=== PATIENT | female | born 1990 | race African-American/Black ===

== ENCOUNTER 2023-01-27 08:30 | Emergency (ER) | payer MEDICAID, OTHER ==
[~2023-01-27] VITALS: Ht 170 cm; Wt 111.0 kg
[2023-01-27] MEDS ORDERED: LIDOCAINE 1% INJ 10 ML VIAL INJ ONE (08:45)
[2023-01-27] MEDS ORDERED: LIDOCAINE/EPI 1%-1:100,000 (XYLOCAINE) 20ML ONE (08:45)
[2023-01-27] MEDS ORDERED: LIDOCAINE/EPI 2% 1:100,00 (XYLOCAINE) 20 ML VIAL INJ ONE (09:00)
[2023-01-27] MEDS ORDERED: SULF1TAB38 PO (09:10)
[2023-01-27] MEDS ORDERED: TRM50T PO (09:10)
[2023-01-27] MEDS ORDERED: MELO15TA39 PO (09:10)
[2023-01-27] MEDS ORDERED: METR-145 PO (09:10)
--- NOTE | 2023-01-27 09:10 | ED Integumentary General ---
General Chief Complaint: Skin/Wound Problems Stated Complaint: POSSIBLE BOIL Nursing Triage Note: PT STATES HAVING A BOIL ON HER BUTTOCKS Source: patient History of Present Illness Date Seen by Provider: Jan 27, 2023 Time Seen by Provider: 08:39 Initial Comments PT ARRIVES VIA POV C/O "BOIL ON MY CRACK" FOR THE LAST COUPLE OF DAYS, WORSE TODAY NO DRAINAGE NO FEVER HAS HISTORY OF SAME--HAD IT TWICE LAST YEAR. HAD I&D X1. HAS NOT FOLLOWED UP WITH ANYONE SINCE THEN DENIES ANY MEDICAL PROBLEMS PT HAS BEEN HERE FOR THE LAST MONTH, FROM [place], [place] VAGUE ABOUT WHETHER SHE HAS MOVED HERE OR JUST VISITING. Allergies and Home Medications Allergies Coded Allergies: No Known Drug Allergies (Unverified , 01/27/23) Patient Home Medication List Home Medication List Reviewed: Yes Meloxicam (Meloxicam) 15 Mg Tablet, 15 MG PO DAILY Prescribed by: IRENE FREY on 01/27/23 0910 Metronidazole (Metronidazole) 500 Mg Tablet, 500 MG PO QID Prescribed by: IRENE FREY on 01/27/23 0910 Sulfamethoxazole/Trimethoprim (Bactrim Ds Tablet) 1 Each Tablet, 1 EACH PO BID Prescribed by: IRENE FREY on 01/27/23 0910 Tramadol HCl (Tramadol HCl) 50 Mg Tablet, 50 MG PO Q6H PRN for PAIN Prescribed by: IRENE FREY on 01/27/23 0910 Review of Systems Review of Systems Constitutional: no symptoms reported Genitourinary: no symptoms reported Musculoskeletal: see HPI Skin: see HPI Psychiatric/Neurological: No Symptoms Reported Past Biglzvd-Apicod-Wzgrxh Hx Patient Social History Tobacco Use?: No Substance use?: Yes Substance type: Marijuana Substance frequency: Daily Alcohol Use?: Yes Alcohol Frequency: Rarely Immunizations Up To Date Second COVID19 Vaccination Fred: YES Past Medical History Surgery/Hospitalization HX: DENIES Surgeries: Yes (I&D OF PILONIDAL ABSCESS) Respiratory: No Cardiac: No Neurological: No Genitourinary: No Gastrointestinal: No Musculoskeletal: No Endocrine: No HEENT: No Cancer: No Psychosocial: No Integumentary: Yes (PILONIDAL CYST/ABSCESS) Blood Disorders: No Physical Exam Vital Signs Vital Signs - First Documented 01/27/23 08:39 Temp 36.0 Pulse 86 Resp 20 B/P (MAP) 144/84 (104) Pulse Ox 100 O2 Delivery Room Air Capillary Refill : Less Than 3 Seconds General Appearance: WD/WN, no apparent distress Neurologic/Psychiatric: no motor/sensory deficits, alert, normal mood/affect Skin: normal color (PT IS BLACK), warm/dry, other (PILONIDAL ABSCESS PRESENT, FLUCTUANT, TENDER. NO ERYTHEMA TO OVERLYING SKIN, NO POINTING. NO DRAINAGE. ) Procedures/Interventions I&D : Site: PILONIDAL AREA Blade Size: 11 I & D Procedure: sterile drapes applied, gauze wick placed, Wound Packing Packing/Drain: Idoform 1/ Progress AREA CLEANSED WITH BETASEPT INJECTED WITH 1% LIDOCAINE + EPI STERILE DRAPES PLACED INCISED WITH #11 BLADE COPIOUS AMOUNTS OF FOUL-SMELLING PURULENT MATERIAL DRAINED. CULTURE OBTAINED PROBED TO BREAK UP LOCULATIONS IRRIGATED WITH STERILE SALINE PACKED WITH 1/4" IODOFORM GAUZE DRESSED WITH NON-ADHERENT DRESSING AND ABD DRESSING. PT TOLERATED VERY WELL Progress/Results/Core Measures Results/Orders My Orders Orders - IRENE FREY DO Lidocaine 1% Inj 10 Ml (Xylocaine 1% Inj (01/27/23 08:45) Lidocaine/Epi 1% 1:100,000 (Xylocaine /E (01/27/23 08:45) Lidocaine/Epi 2% 1:100,000 (Xylocaine/Ep (01/27/23 09:00) Wound Culture (01/27/23 09:07) Medications Given in ED Current Medications Medications Dose Ordered Sig/Mariaa Route Start Time Stop Time Status Last Admin Dose Admin Lidocaine/ Epinephrine 20 ml STK-MED ONCE .ROUTE 01/27/23 08:45 01/27/23 08:48 DC 01/27/23 08:52 5 ML Vital Signs/I&O 01/27/23 08:39 Temp 36.0 Pulse 86 Resp 20 B/P (MAP) 144/84 (104) Pulse Ox 100 O2 Delivery Room Air Blood Pressure Mean: 104 Progress Progress Note : Progress Note DISCUSSED ANTICIPATED COURSE, SYMPTOMATIC TREATMENT, MEDICATIONS, NEED FOR FOLLOW UP--REFERRAL TO SURGEON MADE, AND RETURN PRECAUTIONS. UNEVENTFUL ER STAY Departure Impression Primary Impression: Pilonidal cyst with abscess Disposition: 01 HOME, SELF-CARE Condition: Stable Departure-Patient Inst. Decision time for Depature: 09:08 Referrals: LAWTON,STEWART D DO Patient Instructions: Pilonidal Cyst (DC), Abscess Incision and Drainage ED Add. Discharge Instructions: LEAVE PACKING IN PLACE YOU MAY CHANGE THE DRESSING NEEDED DO NOT GET THE AREA WET FOLLOW UP WITH DR. LAWTON, SURGEON, NEXT WEEK FOR FURTHER CARE--CALL ON SUNDAY MORNING TO SCHEDULE AN APPOINTMENT All discharge instructions reviewed with patient and/or family. Voiced understanding. Scripts Tramadol HCl (Tramadol HCl) 50 Mg Tablet 50 MG PO Q6H PRN for PAIN, #14 TAB 0 Refills Prov: IRENE FREY DO 01/27/23 Meloxicam (Meloxicam) 15 Mg Tablet 15 MG PO DAILY, #10 TAB Prov: IRENE FREY DO 01/27/23 Metronidazole (Metronidazole) 500 Mg Tablet 500 MG PO QID, #40 TAB Prov: IRENE FREY DO 01/27/23 Sulfamethoxazole/Trimethoprim (Bactrim Ds Tablet) 1 Each Tablet 1 EACH PO BID, #20 TAB Prov: IRENE FREY DO 01/27/23 Work/School Note: Work Release Form Date Seen in the Emergency Department: Jan 27, 2023 Return to Work: Jan 29, 2023 IRENE FREY DO Jan 27, 2023 09:10
[2023-01-27 09:16] VITALS: BP 144/84
== END 2023-01-27 09:16 | disposition home or self-care (01) ==
LOC: ER 08:36
DX: L05.01 Pilonidal cyst with abscess (principal)
CPT/HCPCS: 10061; 87070; 87205